=== PATIENT | male | born 1960 | race Hispanic/Latino ===

== ENCOUNTER 2018-01-09 18:49 | Emergency (ER) | payer MEDICAID ==
[2018-01-09 19:54] LABS: BASO # 0.1 K/uL (0.0-0.2); BASO % 0.8 % (0.0-2.0); EOS # 0.4 K/uL (0.0-0.7); EOS % 4.2 % (0.0-4.0); HEMOGLOBIN 13.6 g/dL (12.0-18.0); LYMPH # 2.3 K/uL (1.0-4.3); LYMPH % 25.2 % (20.0-40.0); MEAN CELL VOLUME 85.9 fL (80.0-94.0); MEAN CORPUSCULAR HEMOGLOBIN 29.2 pg (27.0-31.0); MEAN PLATELET VOLUME 8.4 fL (7.2-11.7); MONO # 0.6 K/uL (0.0-0.8); NEUT # 5.6 K/uL (1.8-7.0); NEUT % 62.8 % (50.0-75.0); RBC 4.64 Mil/uL (4.40-5.90); RED CELL DISTRIBUTION WIDTH 13.2 % (11.5-14.5); WHITE BLOOD COUNT 8.9 K/uL (4.8-10.8)
[2018-01-09 19:57] LABS: URINE BILIRUBIN NEGATIVE (NEGATIVE); URINE BLOOD NEGATIVE (NEGATIVE); URINE CLARITY Clear (Clear); URINE COLOR Straw (YELLOW); URINE GLUCOSE (UA) NORMAL (Normal); URINE LEUKOCYTE ESTERASE NEG Leu/uL (Negative); URINE PROTEIN NEGATIVE (NEGATIVE); URINE UROBILINOGEN NORMAL mg/dL (0.2-1.0)
[2018-01-09 20:06] LABS: ALB/GLOB RATIO 1.3 (1.0-2.1); ALT/SGPT 36 U/L (21-72); AST/SGOT 53 U/L (17-59); BLOOD UREA NITROGEN 17 mg/dL (9-20); GFR AFRICAN-AMERICAN > 60; GFR NON-AFRICAN AMERICAN > 60
[2018-01-09 20:09] LABS: BARBITURATES, UR NEGATIVE (NEGATIVE); BENZODIAZEPINES, UR NEGATIVE (NEGATIVE); PHENCYCLIDINE, UR NEGATIVE (NEGATIVE)
[2018-01-09 20:16] LABS: OPIATES, UR POSITIVE (NEGATIVE)
[2018-01-09 20:30] LABS: ACETAMINOPHEN < 10.0 ug/mL (10.0-30.0); SALICYLATE < 1.0 mg/dL 1
--- NOTE | 2018-01-09 21:09 | C.PDOC ---
Time Seen by Provider: 01/09/18 19:26 Chief Complaint (Nursing): Psychiatric Evaluation History Per: Patient Onset/Duration Of Symptoms: Days Current Symptoms Are (Timing): Still Present Suicide/Self Injury Attempted (Context): None Modifying Factor(s): Narcotics Severity: Moderate Associated Symptoms: Depression Additional History Per: Prior Records Past Medical History Reviewed: Historical Data, Nursing Documentation, Vital Signs Vital Signs: Last Vital Signs Temp 98.2 F 01/09/18 21:23 Pulse 69 01/09/18 21:23 Resp 18 01/09/18 21:23 BP 118/67 01/09/18 21:23 Pulse Ox 95 01/09/18 21:23 - Medical History PMH: Diabetes, Chronic Kidney Disease (temp. Dialysis) - [facility] Procedures APPLICATION OF SPLINT (05/31/05) DRUG DETOXIFICATION (05/26/15) INJECT ANTIBIOTIC (07/20/05) Family History: States: Unknown Family Hx - Social History Hx Tobacco Use: Yes Hx Alcohol Use: Yes Hx Substance Use: Yes (Snorts Heroin) - Immunization History Hx Tetanus Toxoid Vaccination: No Hx Influenza Vaccination: No Hx Pneumococcal Vaccination: No Review Of Systems Except As Marked, All Systems Reviewed And Found Negative. Constitutional: Negative for: Fever Cardiovascular: Negative for: Chest Pain Respiratory: Negative for: Shortness of Breath Gastrointestinal: Negative for: Vomiting, Abdominal Pain Musculoskeletal: Negative for: Neck Pain Skin: Negative for: Rash Neurological: Negative for: Weakness, Numbness Physical Exam - Physical Exam Appears: Non-toxic, No Acute Distress Skin: Normal Color, Warm, Dry Head: Atraumatic, Normacephalic Eye(s): bilateral: PERRL, EOMI Neck: Normal ROM, Supple Cardiovascular: Rhythm Regular Respiratory: Normal Breath Sounds, No Accessory Muscle Use Gastrointestinal/Abdominal: Soft, No Tenderness Extremity: Normal ROM Neurological/Psych: Oriented x3, Normal Motor, Normal Sensation ED Course And Treatment - Laboratory Results Result Diagrams: 01/09/18 19:49 01/09/18 19:49 Lab Interpretation: No Acute Changes O2 Sat by Pulse Oximetry: 98 Pulse Ox Interpretation: Normal Progress Note: Pt is medically stable for detox/psych admission. Disposition Counseled Patient/Family Regarding: Studies Performed, Diagnosis, Smoking Cessation - Disposition Disposition: HOSPITALIZED Disposition Time: 22:30 Condition: STABLE - Clinical Impression Clinical Impression: Heroin dependence Decision To Admit - Pt Status Changed To: Hospital Disposition Of: Inpatient - Admit Certification Admit to Inpatient:: After my assessment, the patient will require hospitalization for at least two midnights. This is because of the severity of symptoms shown, intensity of services needed, and/or the medical risk in this patient being treated as an outpatient. - InPatient: Physician Admission Certification: I certify that this patient requires 2 or more midnights of care for the following reason:: Detox. - . Bed Request Type: Detox Admitting Physician: Samaria Gonsalves Patient Diagnosis: Heroin dependence
[2018-01-09] MEDS ORDERED: Aluminum Hydroxide/Magnesium Hydroxide Susp (30 mL) PO PRN (23:26)
[2018-01-10 07:38] VITALS: BP 152/84; PULSE 78; RESP 18; TEMP 98; O2SAT 95
--- NOTE | 2018-01-10 14:00 | RAD ---
PROCEDURE: CHEST RADIOGRAPH, 1 VIEW HISTORY: Psych clearance COMPARISON: Comparison chest 05/26/2015 FINDINGS: LUNGS: Poor inspiration with low lung volumes, crowded bronchovascular markings and mild bibasilar atelectasis. PLEURA: No pneumothorax or pleural fluid seen. CARDIOVASCULAR: Heart size upper limits of normal. OSSEOUS STRUCTURES: No significant abnormalities. VISUALIZED UPPER ABDOMEN: Normal. OTHER FINDINGS: None. IMPRESSION: Poor inspiration with low lung volumes, crowded bronchovascular markings and mild bibasilar atelectasis.
== END 2018-01-10 07:39 | disposition short-term general hospital (02) ==
LOC: C.ER 18:49 → C.7D 22:42 → UNDOADMIN 22:42 → C.ER 01-10 07:39
DX: F11.20 Opioid dependence, uncomplicated (principal); R45.851 Suicidal ideations

== ENCOUNTER 2018-08-22 00:17 | Emergency (ER) | payer MEDICAID ==
[2018-08-22 00:29] VITALS: BP 122/75; PULSE 82; RESP 18; TEMP 97.9; O2SAT 99
== END 2018-08-22 01:00 | disposition left against medical advice (07) ==
LOC: C.ER 00:17 → SUPCPDRO 00:17 → C.ER 01:00
DX: Z02.89 Encounter for other administrative examinations (principal); F19.10 Other psychoactive substance abuse, uncomplicated

== ENCOUNTER 2018-08-23 14:23 | Inpatient (IN) | payer MEDICAID ==
--- NOTE | 2018-08-23 15:54 | C.PDOC ---
History Of Present Illness 57 y/o male, with history of diabetes, presents to ED requesting heroin and alcohol detox. States last heroin use was earlier in the morning at 7am through the nose. Patient reports drinking beer and taking shots of vodka as well, and smokes cigarettes. Patient states he has done detox at [facility] 4 years ago. Time Seen by Provider: 08/23/18 14:44 Chief Complaint (Nursing): Substance Abuse History Per: Patient History/Exam Limitations: no limitations Onset/Duration Of Symptoms: Days Current Symptoms Are (Timing): Still Present Past Medical History Reviewed: Historical Data, Nursing Documentation, Vital Signs Vital Signs: Last Vital Signs Temp 98.3 F 08/23/18 14:39 Pulse 76 08/23/18 14:39 Resp 20 08/23/18 14:39 BP 130/74 08/23/18 14:39 Pulse Ox 97 08/23/18 14:39 - Medical History PMH: Depression, Diabetes, Chronic Kidney Disease (temp. Dialysis) Denies: HTN, Seizures, Sexually Transmitted Disease - [facility] Procedures APPLICATION OF SPLINT (05/31/05) DRUG DETOXIFICATION (05/26/15) INJECT ANTIBIOTIC (07/20/05) Family History: States: No Known Family Hx - Social History Hx Tobacco Use: Yes Hx Alcohol Use: Yes Hx Substance Use: Yes (heroin) - Immunization History Hx Tetanus Toxoid Vaccination: No Hx Influenza Vaccination: No Hx Pneumococcal Vaccination: No Review Of Systems Except As Marked, All Systems Reviewed And Found Negative. Constitutional: Negative for: Fever Respiratory: Negative for: Cough Gastrointestinal: Negative for: Vomiting Skin: Negative for: Rash Physical Exam - Physical Exam Appears: Non-toxic, No Acute Distress Skin: Warm, Dry Head: Atraumatic, Normacephalic Eye(s): bilateral: Normal Inspection, PERRL, EOMI Oral Mucosa: Moist Neck: Normal ROM, Supple Chest: Symmetrical Cardiovascular: Rhythm Regular, No Murmur Respiratory: Normal Breath Sounds, No Rales, No Rhonchi, No Wheezing Gastrointestinal/Abdominal: Soft, No Tenderness Extremity: Bilateral: Atraumatic, Normal Color And Temperature, Normal ROM Neurological/Psych: Oriented x3, Normal Speech, Normal Motor, Normal Sensation Gait: Steady ED Course And Treatment - Laboratory Results Result Diagrams: 08/23/18 16:47 08/23/18 16:47 ECG: Interpreted By Me ECG Rhythm: Sinus Rhythm ECG Interpretation: Normal, No Acute Changes Rate From EC O2 Sat by Pulse Oximetry: 97 (RA) Pulse Ox Interpretation: Normal - Other Rad Chest X-Ray X-Ray: Read By Radiologist Interpretation: FINDINGS: LINES AND TUBES: None. LUNG AND PLEURA: The lungs are hyperinflated and there is peribronchial thickening with chronic changes in both lungs. No pleural effusion or pneumothorax. HEART AND MEDIASTINUM: The heart is not enlarged. No aortic atherosclerotic calcification present. The hilar and mediastinal contours are within normal limits. SKELETAL STRUCTURES: The bony structures are within normal limits for the patient's age. VISUALIZED UPPER ABDOMEN: Normal. OTHER FINDINGS: None. IMPRESSION: No active pulmonary disease. COPD. Medical Decision Making Medical Decision Making: Initial Impression: Opioid use disorder, alcohol use disorder Initial Plan: Will send labs. Progress note: Patient is medically stable for admission to Detox. I recommend a podiatry consult while receiving inpatient care for foot numbness and ulcers (likely from underlying diabetes). Disposition - Disposition - Clinical Impression Clinical Impression: Opioid use disorder, Alcohol use disorder, Non-insulin dependent type 2 diabetes mellitus - Scribe Statement The provider has reviewed the documentation as recorded by the Valentina Lynn Provider Attestation: All medical record entries made by the [facility] were at my direction and personally dictated by me. I have reviewed the chart and agree that the record accurately reflects my personal performance of the history, physical exam, medical decision making, and the department course for this patient. I have also personally directed, reviewed, and agree with the discharge instructions and disposition. Decision To Admit - Pt Status Changed To: Hospital Disposition Of: Inpatient - Admit Certification Admit to Inpatient:: After my assessment, the patient will require hospitalization for at least two midnights. This is because of the severity of symptoms shown, intensity of services needed, and/or the medical risk in this patient being treated as an outpatient. - InPatient: Physician Admission Certification: I certify that this patient requires 2 or more midnights of care for the following reason:: Pt meets inpatient criteria (ASAM criteria) for detox - . Bed Request Type: Detox Admitting Physician: Sae Vanegas Patient Diagnosis: Opioid use disorder, Alcohol use disorder, Non-insulin dependent type 2 diabetes mellitus
--- NOTE | 2018-08-23 16:31 | RAD ---
Date of service: 08/23/2018 HISTORY: Detox COMPARISON: 01/10/2018 TECHNIQUE: Chest PA and lateral FINDINGS: LINES AND TUBES: None. LUNG AND PLEURA: The lungs are hyperinflated and there is peribronchial thickening with chronic changes in both lungs. No pleural effusion or pneumothorax. HEART AND MEDIASTINUM: The heart is not enlarged. No aortic atherosclerotic calcification present. The hilar and mediastinal contours are within normal limits. SKELETAL STRUCTURES: The bony structures are within normal limits for the patient's age. VISUALIZED UPPER ABDOMEN: Normal. OTHER FINDINGS: None. IMPRESSION: No active pulmonary disease. COPD.
[2018-08-23 16:55] LABS: BASO # 0.1 K/uL (0.0-0.2); BASO % 0.6 % (0.0-2.0); EOS # 0.4 K/uL (0.0-0.7); EOS % 4.9 % (0.0-4.0); HEMOGLOBIN 12.5 g/dL (12.0-18.0); LYMPH # 1.7 K/uL (1.0-4.3); LYMPH % 21.3 % (20.0-40.0); MEAN CELL VOLUME 85.7 fL (80.0-94.0); MEAN CORPUSCULAR HEMOGLOBIN 28.9 pg (27.0-31.0); MEAN CORPUSCULAR HGB CONC 33.7 g/dL (33.0-37.0); MEAN PLATELET VOLUME 8.1 fL (7.2-11.7); MONO # 0.6 K/uL (0.0-0.8); MONO % 7.6 % (0.0-10.0); NEUT # 5.4 K/uL (1.8-7.0); NEUT % 65.6 % (50.0-75.0); RBC 4.31 Mil/uL (4.40-5.90); RED CELL DISTRIBUTION WIDTH 12.8 % (11.5-14.5); WHITE BLOOD COUNT 8.2 K/uL (4.8-10.8)
[2018-08-23 17:06] LABS: ALB/GLOB RATIO 1.4 (1.0-2.1); ALBUMIN 3.8 g/dL (3.5-5.0); ALT/SGPT 53 U/L (21-72); AST/SGOT 60 U/L (17-59); BLOOD UREA NITROGEN 21 mg/dL (9-20); CALCIUM 9.1 mg/dl (8.6-10.4); GFR NON-AFRICAN AMERICAN > 60
[2018-08-23 17:09] LABS: URINE BACTERIA RARE (<OCC); URINE BILIRUBIN NEGATIVE (NEGATIVE); URINE BLOOD NEGATIVE (NEGATIVE); URINE CLARITY Clear (Clear); URINE COLOR Yellow (YELLOW); URINE GLUCOSE (UA) 2+ mg/dL (Normal); URINE LEUKOCYTE ESTERASE NEG Leu/uL (Negative); URINE PROTEIN NEGATIVE (NEGATIVE)
[2018-08-23 17:23] LABS: BARBITURATES, UR NEGATIVE (NEGATIVE); BENZODIAZEPINES, UR NEGATIVE (NEGATIVE); PHENCYCLIDINE, UR NEGATIVE (NEGATIVE)
[2018-08-23 17:24] LABS: OPIATES, UR POSITIVE (NEGATIVE)
--- NOTE | 2018-08-23 18:04 | PCM.BM ---
<Kelsea Benavidez - Last Filed: 08/23/18 18:03> Treatment Plan Problems - Problems identified on initial assessmt potiential for opiate withdrawal Date Initiated: 08/23/18 Time Initiated: 18:04 Assessment reference: NA Status: Active Treatment assets and liabiliti Patient Assests: adapts well, cooperative, educated, insightful, self-reliant, ADL independent, cognitively intact Patient Liabilities: substance abuse, medical problems - Milieu Protocol Maintain good personal hygiene: daily Encourage regular showers, daily Remind patient to perform daily oral care, daily Assist patient to perform ADL's Maintain personal safety: every shift Educate patient to report safety concerns to staff, every shift Monitor environment for contraband/sharps Medication safety: Monitor for expected outcome, potential side effects: every shift, Assess barriers to learning: every shift, Assess readiness for medication education: every shift <Amie Rush - Last Filed: 08/25/18 14:36> Family Contact Family involvement: Famliy/SO not involved - Goals for Treatment Patient goals for treatment: Complete detox and apply for long-term rehab. Discharge/Continuing Care - Education Needs Education Needs: Patient Medication, Patient Diagnosis/Disease Process, Patient Coping Skills, Patient Anger Management skills, Patient Placement options, Patient Community resources - Discharge Discharge Criteria: No longer exhibiting s/s of withdrawal, Reduction of target symptoms Discharge to:: Substance Abuse Rehab - Treatment Team Participation Patient/Family/SO Statement: 08/25/18 14:35 "I graduated from [facility] in [place]. I wanna go back there." Discussed with Family/SO: No Was Patient/Family/SO present at Treatment Team Meeting: Yes
[2018-08-23] MEDS ORDERED: Aluminum Hydroxide/Magnesium Hydroxide Susp (30 mL) PO PRN (20:07)
[2018-08-24] MEDS: Multiple Vitamins Tab PO SCH (09:50)
--- NOTE | 2018-08-24 10:09 | PCM.PSYCH ---
Initial Psychiatric Evaluation - Initial Psychiatric Evaluation Type of Admission: Voluntary Legal Status: Capacity Chief Complaint (in patient's own words): "I need detox" History of Present Illness and Precipitating Events: Patient is a 57 year old male who is currently single, homeless, and is unemployed. He came to detox yesterday for heroin use, and also complains of persistent numbness in his fingers. He last used 10 bags of heroin yesterday at 12 pm. He normally does 10 bags of heroin a day, for 20 years. His method of use is by sniffing. He also states that he occasionally uses cocaine, with his last use being Friday. He normally does $20+ cocaine when he uses. The patient states that he has been to detox before and that it was a while ago. When asked about alcohol use, he states that he drinks 1-2 beers a day, along with a couple of shots. He also smokes a half a pack of cigarettes a day, for 20 years He states that he currently feels depressed. He denies any suicidal or homicidal ideation. He says his sleep is horrible," his energy is low, and that he gets racing thoughts. He denies visual hallucinations. Past Psych History- Depression Family Psych History - denies PMH- diabetes mellitus type 2 (not well controlled due to his substance use) Current Medications: Active Medications Generic Name Dose Route Start Last Admin Trade Name Seda PRN Reason Stop Dose Admin Al Hydrox/Mg Hydrox/Simethicone 30 ml 08/23/18 20:07 Maalox 30 Ml PO TID PRN Indigestion / Heartburn Chlordiazepoxide 25 mg 08/23/18 20:08 08/24/18 09:58 Librium PO 25 mg Q4H PRN Administration Alcohol Withdrawal Clonidine HCl 0.1 mg 08/23/18 20:07 08/24/18 05:01 Catapres PO 0.1 mg Q4 PRN Administration COWS Score More or Equal to 5 Dicyclomine HCl 10 mg 08/23/18 20:10 Bentyl PO Q6 PRN Abdominal cramps Folic Acid 1 mg 08/24/18 10:00 08/24/18 09:51 Folic Acid PO 1 mg DAILY ALVARO Administration Gabapentin 300 mg 08/24/18 10:00 08/24/18 09:51 Neurontin PO 300 mg TID ALVARO Administration Ibuprofen 400 mg 08/23/18 20:10 08/24/18 09:58 Motrin Tab PO 400 mg Q6 PRN Administration Pain, moderate (4-7) Loperamide HCl 2 mg 08/23/18 20:07 Imodium PO Q8 PRN Diarrhea Multivitamins 1 tab 08/24/18 10:00 08/24/18 09:50 Hexavitamin PO 1 tab DAILY ALVARO Administration Ondansetron HCl 4 mg 08/23/18 20:07 Zofran Tab PO Q8 PRN Nausea/Vomiting Thiamine HCl 100 mg 08/24/18 10:00 08/24/18 09:50 Vitamin B1 Tab PO 100 mg DAILY ALVARO Administration Trazodone HCl 50 mg 08/23/18 20:08 Desyrel PO HS PRN Insomnia Past Psychiatric History - Past Psychiatric History Previous Treatment History: Intensive Outpatient Pertinent Medical Hx (Current Medical&Sleep Prob, Allergies): Allergies Allergy/AdvReac Type Severity Reaction Status Date / Time No Known Allergies Allergy Verified 01/10/18 07:44 metFORMIN [glucOPHAGE] 500 mg PO BID 08/22/18 Review of Systems - Psychiatric Psychiatric: Abnormal Sleep Pattern, Anhedonia, Anxiety, Depression, Difficulty Concentrating, Irritability, Mood Swings. absent: Homicidal Ideation, Paranoia, Suicidal Ideation Mental Status Examination - Personal Presentation Personal Presentation: Looks stated age - Affect Affect: Constricted - Motor Activity Motor Activity: Calm - Reliability in Providing Information Reliability in Providing Information: Good - Speech Speech: Organized - Mood Mood: Depressed, Anxious - Formal Thought Process Formal Thought Process: No Impairment - Cognitive Functions Orientation: Person, Place, Situation, Time Sensorium: Alert Attention/Concentration: Easily distracted Estimate of Intelligence: Average Judgement: Intact, as evidence by: Insight regarding need for hospitalization Memory: Recent intact, as evidence by: Ability to recall events of the day, Remote intact, as evidenced by: Abilit to recall sig. life events - Risk Risk: Diminished functioning DSM 5 DX - DSM 5 DSM 5 Diagnosis: Opioid withdrawal Opioid Use Disorder, severe Cocaine Use Disorder, severe Major Depression, single, moderate Alcohol use d/o moderate Tobacco use d/o - Recommended/Plan of Treatment Treatment Recommendations and Plan of Treatment: Resume metformin for DM Taper with Librium Gabapentin for augmentation As needed medications All risks, benefits and alternatives of the meds discussed, and the pt agreed and understood. Attend groups and activities Supportive therapy and psychoeducation [facility] for abstinence CBT for relapse prevention Encourage MAT Refer to rehab or IOP, and self-help groups Teach healthy lifestyle methods, i.e. diet, exercise, meditation Smoking cessation with [place] Nicotine patch if needed 33 min Projected ELOS: 5 days - Smoking Cessation Smoking Cessation Initiated: Yes
[2018-08-25] MEDS: Multiple Vitamins Tab PO SCH (09:35)
--- NOTE | 2018-08-25 14:50 | CARD ---
APPROVED REPORT Date of service: 08/23/2018 EKG Measurement Heart [id number] <Conclusion> Normal sinus rhythm Normal ECG
--- NOTE | 2018-08-25 23:41 | CP.PCM.CON ---
History of Present Illness - History of Present Illness History of Present Illness: Podiatry - Dr. Jasso 57M seen and evaluated for painful calluses. Patient states he recently got new shoes and was walking a long distance in them - reports he developed blisters on his feet which eventually turned into calluses. Patient states he has tried to rip off the calluses himself and ripped too deep causing his foot to bleed. Patient also complains of dry skin in his feet. Denies n/v/f/d/c/sob. Review of Systems - Review of Systems All systems: reviewed and no additional remarkable complaints except (as per HPI) Past Patient History - Infectious Disease Hx of Infectious Diseases: None - Tetanus Immunizations Tetanus Immunization: Unknown - Past Medical History & Family History Past Medical History?: No - Past Social History Smoking Status: Heavy Smoker > 10 Cigarettes Daily - CARDIAC Hx Hypertension: No - PULMONARY Hx Tuberculosis: No - NEUROLOGICAL Hx Seizures: No - HEENT Hx HEENT Problems: No - RENAL Hx Chronic Kidney Disease: Yes (temp. Dialysis) - ENDOCRINE/METABOLIC Hx Endocrine Disorders: Yes Hx Diabetes Mellitus Type 2: Yes - HEMATOLOGICAL/ONCOLOGICAL Hx Cancer: Yes Hx Human Immunodeficiency Virus (HIV): No - INTEGUMENTARY Hx Dermatological Problems: No - MUSCULOSKELETAL/RHEUMATOLOGICAL Hx Musculoskeletal Disorders: No Hx Falls: No - GASTROINTESTINAL Hx Gastrointestinal Disorders: No - GENITOURINARY/GYNECOLOGICAL Hx Sexually Transmitted Disorders: No - PSYCHIATRIC Hx Substance Use: Yes - SURGICAL HISTORY Other/Comment: bone fusion left foot - ANESTHESIA Hx Anesthesia: Yes Hx Anesthesia Reactions: No Meds Allergies/Adverse Reactions: Allergies Allergy/AdvReac Type Severity Reaction Status Date / Time No Known Allergies Allergy Verified 01/10/18 07:44 - Medications Medications: Current Medications Al Hydrox/Mg Hydrox/Simethicone (Maalox 30 Ml) 30 ml PO TID PRN PRN Reason: Indigestion / Heartburn Chlordiazepoxide (Librium) 25 mg PO Q4H PRN PRN Reason: Alcohol Withdrawal Last Admin: 08/24/18 21:16 Dose: 25 mg Clonidine HCl (Catapres) 0.1 mg PO Q4 PRN PRN Reason: COWS Score More or Equal to 5 Last Admin: 08/25/18 12:11 Dose: 0.1 mg Dicyclomine HCl (Bentyl) 10 mg PO Q6 PRN PRN Reason: Abdominal cramps Folic Acid (Folic Acid) 1 mg PO DAILY [facility] Last Admin: 08/25/18 09:35 Dose: 1 mg Gabapentin (Neurontin) 300 mg PO TID [facility] Last Admin: 08/25/18 17:19 Dose: 300 mg Ibuprofen (Motrin Tab) 600 mg PO Q6 PRN PRN Reason: Pain, moderate (4-7) Last Admin: 08/25/18 21:38 Dose: 600 mg Loperamide HCl (Imodium) 2 mg PO Q8 PRN PRN Reason: Diarrhea Losartan Potassium (Cozaar) 50 mg PO DAILY [facility] Last Admin: 08/25/18 13:30 Dose: 50 mg Metformin HCl (Glucophage) 1,000 mg PO BIDCC [facility] Last Admin: 08/25/18 17:19 Dose: 1,000 mg Methadone HCl (Methadone) 20 mg PO Q24H [facility]; Taper Stop: 08/29/18 09:59 Last Admin: 08/25/18 09:35 Dose: 20 mg Mirtazapine (Remeron) 15 mg PO HS [facility] Last Admin: 08/25/18 21:38 Dose: 15 mg Multivitamins (Hexavitamin) 1 tab PO DAILY [facility] Last Admin: 08/25/18 09:35 Dose: 1 tab Ondansetron HCl (Zofran Tab) 4 mg PO Q8 PRN PRN Reason: Nausea/Vomiting Thiamine HCl (Vitamin B1 Tab) 100 mg PO DAILY [facility] Last Admin: 08/25/18 09:35 Dose: 100 mg Trazodone HCl (Desyrel) 100 mg PO HS PRN PRN Reason: Insomnia Last Admin: 08/25/18 21:38 Dose: 100 mg Physical Exam - Constitutional Appears: Well, No Acute Distress - Extremities Exam Additional comments: VASC: DP and PT pulses palpable 2/4 b/l. CFT <3 seconds to all digits x10. Temperature gradient warm to warm. No edema noted. NEURO: Light touch and protective sensation diminished. DERM: Hyperkeratotic lesion noted sub met 3-4 left foot, distal tuft of 3rd digit, and right hallux. No open lesions present. No erythema, fluctuance, drainage noted. ORTHO: Pain on palpation hyperkeratotic lesions. - Neurological Exam Neurological exam: Alert, Oriented x3 - Psychiatric Exam Psychiatric exam: Normal Affect, Normal Mood Results - Vital Signs Recent Vital Signs: Last Vital Signs Temp 98.7 F 08/25/18 20:21 Pulse 62 08/25/18 20:21 Resp 19 08/25/18 20:21 BP 136/79 08/25/18 20:21 Pulse Ox 97 08/25/18 20:21 - Labs Result Diagrams: 08/23/18 16:47 08/23/18 16:47 Labs: Laboratory Results - last 24 hr 08/25/18 08:02 POC Glucose (mg/dL) 170 H Assessment & Plan - Assessment and Plan (Free Text) Assessment: 57M with painful hyperkeratotic lesions b/l feet Plan: Patient seen and evaluated Discussed with attending, Dr. Jasso Hypekeratotic lesions sharply pared using a #15 blade w/o incident, patient tolerated well Ammonium lactate lotion ordered for BID applications Stable from podiatric standpoint Will sign off at this time, please reconsult if new issues arise
[2018-08-26] MEDS: Multiple Vitamins Tab PO SCH (09:07)
[2018-08-26] MEDS: Ammonium Lactate 12% Lotion (225 g) EXT SCH ×2 (09:59→17:07)
[2018-08-27] MEDS: Multiple Vitamins Tab PO SCH (09:10)
[2018-08-27] MEDS: Ammonium Lactate 12% Lotion (225 g) EXT SCH ×2 (09:13→17:19)
[2018-08-27 20:57] VITALS: O2SAT 97
--- NOTE | 2018-08-28 08:46 | PCM.PYCHDC ---
Mental Status Examination - Mental Status Examination Orientation: Person Discharge Summary - Discharge Note Laboratory Data: Abnormal Lab Results 08/27/18 08/28/18 07:22 08:01 POC Glucose (mg/dL) 199 H 181 H Consultations:: List each consultation separately and include: 1. Reason for request. 2. Findings. 3. Follow-up Summary of Hospital Course include:: 1. Description of specific treatment plan utilized for patients during their course of treatmen. 2. Summarize the time- course for resolution of acute symptoms and/or regressed behaviors. 3. Describe issues identified and worked on during hospitalization. 4. Describe medication utilized. 5. Describe medical problems identified and treated. 6. Reassessment of suicide risk Summary of Hospital Course: Patient is a 57 year old male who is currently single, homeless, and is unemployed. He came to detox yesterday for heroin use, and also complains of persistent n umbness in his fingers. He last used 10 bags of heroin yesterday at 12 pm. He normally does 10 bags of heroin a day, for 20 years. His method of use is by sniffing. He also states that he occasionally uses cocaine, with his last use being Friday. He normally does $20+ cocaine when he uses. The patient states that he has been to detox before and that it was a while ago. When asked about alcohol use, he states that he drinks 1-2 beers a day, along with a couple of shots. He also smokes a half a pack of cigarettes a day, for 20 years He states that he currently feels depressed. He denies any suicidal or homicidal ideation. He says his sleep is horrible," his energy is low, and that he gets racing thoughts. He denies visual hallucinations. 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 - Final Diagnosis (DSM 5) Condition upon Discharge: GOOD Disposition: HOME/ ROUTINE Follow-up Treatment Plan: Resume metformin for DM Taper with Librium Gabapentin for augmentation As needed medications All risks, benefits and alternatives of the meds discussed, and the pt agreed and understood. Attend groups and activities Supportive therapy and psychoeducation [place] for abstinence CBT for relapse prevention Encourage MAT Refer to rehab or IOP, and self-help groups Teach healthy lifestyle methods, i.e. diet, exercise, meditation Smoking cessation with [place] Nicotine patch if needed 33 min Prescriptions/Medication Reconciliation: Gabapentin [Neurontin] 300 mg PO TID #90 cap Losartan [Cozaar] 50 mg PO DAILY #30 tab metFORMIN [glucOPHAGE] 1,000 mg PO BIDCC #60 tab Mirtazapine [Remeron] 15 mg PO HS #30 tab traZODone [Desyrel] 100 mg PO HS PRN #30 tab PRN Reason: Insomnia
[2018-08-28] MEDS: Multiple Vitamins Tab PO SCH (09:31)
[2018-08-28] MEDS: Ammonium Lactate 12% Lotion (225 g) EXT SCH (09:40)
[2018-08-28 11:34] VITALS: BP 148/93; PULSE 74; RESP 20; TEMP 98.5
== END 2018-08-28 10:35 | disposition home or self-care (01) | DRG 744 ==
LOC: C.ER 14:23 → C.7D 17:54
PROC: HZ2ZZZZ Detoxification Services for Substance Abuse Treatment (ICD-10-PCS; principal; 2018-08-23)
PROC: HZ80ZZZ Medication Management for Substance Abuse Treatment, Nicotine Replacement (ICD-10-PCS; 2018-08-23)
PROC: GZ3ZZZZ Medication Management (ICD-10-PCS; 2018-08-23)
PROC: HZ46ZZZ Group Counseling for Substance Abuse Treatment, Psychoeducation (ICD-10-PCS; 2018-08-23)
PROC: HZ56ZZZ Individual Psychotherapy for Substance Abuse Treatment, Psychoeducation (ICD-10-PCS; 2018-08-23)
PROC: 0HBMXZZ Excision of Right Foot Skin, External Approach (ICD-10-PCS; 2018-08-25)
DX: F11.23 Opioid dependence with withdrawal (principal); F14.20 Cocaine dependence, uncomplicated; F10.10 Alcohol abuse, uncomplicated; F17.210 Nicotine dependence, cigarettes, uncomplicated; F32.1 Major depressive disorder, single episode, moderate; L84 Corns and callosities; L85.9 Epidermal thickening, unspecified; E11.22 Type 2 diabetes mellitus with diabetic chronic kidney disease; N18.9 Chronic kidney disease, unspecified; Z59.0 Homelessness; Z79.84 Long term (current) use of oral hypoglycemic drugs